=== PATIENT | female | born 1960 | race Caucasian/White ===

== ENCOUNTER 2024-03-17 14:42 | Emergency (ER) | payer SELFPAY ==
[2024-03-17] VITALS (9 sets, daily range): BP systolic 123–172; BP diastolic 52–81; PULSE 68–80; RESP 12–16; TEMP 36.2–36.4; O2SAT 98–100
--- NOTE | ~2024-03-17 | XR_ITS ---
EXAMINATION: XR chest 2V 03/17/2024 15:22 INDICATION: Generalized weakness PROCEDURE: 2 view chest COMPARISON: No prior studies for comparison. FINDINGS: The lungs are clear. The cardiomediastinal silhouette is within normal limits. There are no pleural effusions. There is no pneumothorax suspected. IMPRESSION: 1: NO ACUTE CARDIOPULMONARY DISEASE. Reviewed, dictated and finalized at location B.
--- NOTE | ~2024-03-17 | CT_ITS ---
EXAMINATION: CT brain wo con DATE: 03/17/2024 15:31 INDICATION: Unsteady gait TECHNIQUE: Computed tomography (CT) of the head was performed without intravenous contrast. Sagittal and coronal reconstructions were performed. The mA was adjusted according to patient size. Iterative reconstruction technique was employed. The dose-length product was 529.67 mGy-cm. COMPARISON: None FINDINGS: No acute intracranial hemorrhage, acute infarction or abnormal extra axial fluid collection. There is minimal scattered white matter hypoattenuation consistent with chronic small vessel ischemic disease . Symmetric prominence of the sulci and subarachnoid space overlying the convexities consistent with mild to moderate diffuse cerebral volume loss. Ventricles are normal and symmetric. No mass/mass effe ct. The orbits, paranasal sinuses and mastoid air cells are normal. IMPRESSION: 1. No acute intracranial process. 2. Age-related changes including mild to moderate diffuse volume loss and minimal scattered white mat ter hypoattenuation consistent with chronic small vessel ischemic disease. Reviewed, dictated and finalized at location A. IMPRESSION: 1. No acute intracranial process. 2. Age-related changes including mild to moderate diffuse volume loss and minim al scattered white matter hypoattenuation consistent with chronic small vessel ischemic disease.
--- NOTE | 2024-03-17 15:04 | ECG_ITS ---
Test Date: 2024-03-17 15:12:23 Measurements Intervals [place] Rate: 67 P: -66 [place]: 144 QRS: 53 QRSD: 86 T: 23 QT: 459 QTc: 487 Interpretive Statements ECTOPIC ATRIAL RHYTHM MINIMAL ST DEPRESSION [0.025+ mV ST DEPRESSION] PROLONGED QT INTERVAL No previous ECG available for comparison Electronically Signed On 03-17-2024 15:18:27 CDT by Jacob Padilla M.D.
[2024-03-17 15:20] LABS: Basophils Percent Auto 0.7 % (0.2-1.2); Eosinophils Absolute Auto 0.2 K/mm3 (0-0.3); Eosinophils Percent Auto 2.5 % (0-4.4); Hemoglobin 12.8 g/dL (12.0-15.0); Immature Granulocyte Absolute 0.03 K/mm3 (0.00-0.031); Immature Granulocyte Percent A 0.5 % (0-0.5); Immature Platelet Fraction Pct 7.5 % (0.9-11.2); Lymphocytes Absolute Auto 2.34 K/mm3 (0.9-3.2); Lymphocytes Percent Auto 38.9 % (18.3-44.2); Mean Corpuscular HGB Conc 33.7 g/dl (32-36); Mean Corpuscular Volume 103.8 fl (80-100); Mean Platelet Volume 11.3 fl (7.4-10.4); Monocytes Absolute Auto 0.5 K/mm3 (0.1-0.6); Neutrophils Percent Auto 49.4 % (45.5-73.1); Platelet Count Result 121 k/mm3 (150-375); Red Blood Count 3.66 M/mm3 (4.2-5.4); Red Cell Distribution Width 12.6 % (11.5-14.5)
--- NOTE | 2024-03-17 15:25 | ED.GENADULT ---
HPI - General Adult General Chief complaint: Unspecified Stated complaint: unsteady gait Time Seen by Provider: 03/17/24 14:55 Source: patient Mode of arrival: ambulatory Limitations: no limitations History of Present Illness HPI narrative: Patient is a 63-year-old female who presents the ED with report of unsteady gait. Patient reports she went to her primary care doctor's office today for a spider bite to her R palm. She states her PCP noticed that she was walking abnormally and sent her here for further evaluation and to r/o CA or CVA. Patient does admit to having trouble walking over last 4-5 days. She states she feels weak in her legs and feels as though her legs will not do what they need to do. She states she feels as though she will fall while walking and has needed to hold onto her or a steady object to avoid falling. She has not had any falls. Denies syncope. She denies feeling dizzy or lightheaded. Denies focal weakness or numbness. Denies headaches, blurry vision, confusion, slurred speech, aphasia, chest pain, shortness breath, abdominal pain, nausea, vomiting, dysuria, hematuria, fevers, cough or cold symptoms. Related Data Allergies Allergy/AdvReac Type Severity Reaction Status Date / Time No Known Allergies Allergy Verified 03/17/24 16:26 Review of Systems Review of Systems: All systems reviewed & are unremarkable except as noted in HPI. All systems reviewed & are unremarkable except as noted in HPI and below Exam Narrative: GENERAL: Well appearing, well-nourished, non-toxic, in no acute distress. HEAD: Normocephalic, atraumatic. EYES: PERRL/EOMI, conjunctivae clear bilaterally. No nystagmus. ENT: TMs are clear bilaterally. No cerumen impaction. No signs of AOE/AOM. NECK: Supple. No meningeal signs. RESPIRATORY: Airway patent, respirations nonlabored. Clear to auscultation bilaterally, no rales, rhonchi, wheezing. CARDIOVASCULAR: Regular rate and rhythm without murmurs, rubs, or gallops. Radial pulses 2+ and equal bilaterally. MUSCULOSKELETAL: Moves all extremities. No gross deformities. SKIN: Warm, dry, normal color. No rashes. NEURO: A&O X3. Speech clear. Follows commands. CN II-XII intact. Sensation grossly intact. No ataxic movements. Strength 5/5 in upper and lower extremities bilaterally. [id number] and [id number] testing intact bilaterally. No pronator drift. Equal wood type finisher strength bilaterally. PSYCHIATRIC: Appropriate mood and affect. Normal interaction. Course Vital Signs Vital signs: Vital Signs Temperature 97.5 F L 03/17/24 14:45 Pulse Rate 72 03/17/24 14:45 Respiratory Rate 16 03/17/24 14:45 Blood Pressure 155/75 H 03/17/24 14:45 Pulse Oximetry 99 03/17/24 14:45 Temperature 97.1 F L 03/17/24 14:55 Pulse Rate 78 03/17/24 18:01 Respiratory Rate 13 03/17/24 18:01 Blood Pressure 154/72 H 03/17/24 18:01 Pulse Oximetry 100 03/17/24 18:01 Medical Decision Making MDM Narrative Medical decision making narrative: Patient presents to ED from PCP's office within concern for CVA, unsteady gait X 4-5 days. No other significant symptoms. No other neurologic complaints. Vital signs are stable upon arrival. No orthostatic hypotension. Patient denies feeling dizzy or lightheaded. Just states that she feels as though she will fall walking. Patient is neurologically intact upon my evaluation. There are no appreciable focal deficits. She does not have any appreciable weakness on exam. Basic laboratory studies are fairly unremarkable. Cbc without leukocytosis or anemia. Platelets are 121. No records to compare to. CMP with stable electrolytes, stable kidney function. AST is elevated to 100, though remainder of LFTs are within normal limits. Lactic acid is elevated to 3.1. Fluids initiated. No other systemic signs of infection. UA does appear infectious. Will treat. This very well may be cause of patient's subjective weakness.
[2024-03-17 15:29] LABS: Lactic Acid Reflex 3.1 mmol/L (0.7-2.0)
[2024-03-17 15:30] LABS: Alanine Aminotransferase 27 U/L (6-35); Albumin Level 3.8 g/dL (3.5-5.1); Alkaline Phosphatase 83 U/L (38-126); Anion Gap 7 mmol/L (4-12); Aspartate Amino Transferase 100 U/L (14-36); Bilirubin,Total 0.9 mg/dL (0.2-1.3); Blood Urea Nitrogen 5 mg/dL (7-17); Calcium 8.4 mg/dL (8.4-10.2); Carbon Dioxide 35 mmol/L (22-30); Chloride 94 mmol/L (98-107); Estimated CRCL calculation 52 ml/min; Estimated Glomerular Filt Rate > 60; Glucose 137 mg/dL (65-110); Potassium 3.6 mmol/L (3.4-5.0); Sodium 136 mmol/L (137-145)
[2024-03-17 15:58] LABS: Add Urine Microscopic? YES; Appearance Urine Cloudy (Clear); Bacteria Urine 3+ /hpf; Bilirubin Urine Negative (Negative); Blood Urine Negative (Negative); Color Urine Dark Yellow (Yellow); Glucose Urine UA Negative (Negative); Ketones Urine Trace mg/dL (Negative); Leukocyte Esterase Ur 3+ LEU/UL (Negative); Nitrate Urine Negative (Negative); Non Pathogenic Casts 0-2; Protein Urine 1+ mg/dL (Negative); RBC Urine 0-2 /hpf (0-2); Specific Grav Ur 1.017 (1.001-1.035); Squamous Epithelial Cell Urine Moderate /hpf (Few)
[2024-03-17] MEDS: SODIUM CHLORIDE 0.9% IV 1,000 ML 999 ML IV CONT ×2 (16:21→18:32)
[2024-03-17 17:39] LABS: Benzodiazepines Screen Urine Negative (Negative)
[2024-03-17 17:41] LABS: Amphetamine Screen Urine Negative (Negative); Cannabinoid Screen Urine Negative (Negative); Cocaine Screen Urine Negative (Negative); Methadone Screen Urine Negative (Negative); Opiate Screen Urine Negative (Negative); Phencyclidine Screen Urine Negative (Negative)
[2024-03-17 17:42] LABS: Barbiturate Screen Urine Negative (Negative)
[2024-03-17 18:11] LABS: Ethanol < 10 mg/dL (<10)
[2024-03-17 18:16] LABS: Reflex Lactic Acid Yes or No Add Lactic
[2024-03-17 18:57] LABS: Lactic Acid 1.2 mmol/L (0.7-2.0)
== END 2024-03-17 19:23 | disposition home or self-care (01) ==
PROVIDERS: Emergency Provider Physician Assistant; PCP Emergency Medicine
DX: N30.00 Acute cystitis without hematuria (principal); R94.31 Abnormal electrocardiogram [ECG] [EKG]
CPT/HCPCS: 36415; 70450; 71046; 80053; 80307; 81001; 83605; 83735; 85025; 85055; 87077; 87086; 87088; 87186; 93005; 96361; 96365; 99284; J0696; J7030